=== PATIENT | female | born 1970 | race Caucasian/White ===

== ENCOUNTER 2016-11-01 09:19 | Inpatient (IN) | payer OTHER ==
--- NOTE | ~2016-11-01 | DS ---
Unit #: [id number] #: [id number] Patient: MARIE TAMEZ [id number] [place] [address] [id number] I MR#: [id number] NAME: MARIE TAMEZ. ROOM: 73 Age: 46 Sex: F Admission Date: 11/01/2016 : 1970 Discharge Date: 11/04/2016 Attending Physician: Paco Barraza M.D. Primary Care Physician: Generic Doctor Not In System DISCHARGE SUMMARY REASON FOR ADMISSION Alcohol and opiate dependence, and substance use. DIAGNOSTIC STUDIES PERTINENT LABORATORY DATA: Included RPR which was nonreactive here and urine toxicology screen that was positive for benzos, cocaine, marijuana, and opiates. HOSPITAL COURSE The patient was admitted for safety and stabilization for alcohol detox and was monitored for any opiate signs as well. The patient was maintained on her home medications for her hepatitis C, hypothyroidism, and COPD related complications. The patient was also given hydrocortisone cream by medicine consult for rash. Beyond that the other meds the patient received were detox p.r.n.s. Over the course of the hospitalization, the patient showed an improvement in both her detox symptoms and mood. She was up, active, and interactive with groups and staff. At the time of discharge, she was denying any detox symptoms. She was goal-focused to go to [facility] in her home family's town of [place] and was going to meet them at the bus depot in [place] when she shows up there. Overall, the patient at the time of discharge was denying any SI or HI. She was denying any acute detox symptoms and was overall appeared to be stable. It was felt that she was appropriate for discharge, and disposition home. DISCHARGE DIAGNOSES 1. Alcohol dependency with withdrawal. 2. Opiate abuse. 3. Hepatitis C. 4. Hypothyroidism. 5. Chronic obstructive pulmonary disease. DISCHARGE INSTRUCTIONS Her followup care will be through [facility] in [place] in the next 48 if possible. DISCHARGE MEDICATIONS 1. Advair HFA 115/21 mcg daily for COPD. 2. Levaquin 750 mg daily x1 more dose for UTI. 3. Levothyroxine Sodium 25 mcg daily for hypothyroidism. 4. Hydroxyzine 50 mg every 8 hours as needed for breakthrough anxiety. 5. Phenergan 25 mg as needed 3 times a day for nauseousness. 6. Lllf-ehi-jwgrtvh ibuprofen as needed for breakthrough pain. 7. Ventolin HFA 1 to 2 puffs every 4 to 6 hours as needed for Unit #: [id number] #: [id number] Patient: MARIE TAMEZ COPD-related symptoms. PROGNOSIS Moderate given the patient's history of noncompliance. DISCHARGE DIET Regular. DISCHARGE ACTIVITY As tolerated. Dictated by... Leydi Cuenca/christine TD: 11/04/2016 14:36 JOB #: [id number] DISCHARGE SUMMARY Page 1 of 1 X Paco Barraza MD X DISCHARGE SUMMARY
--- NOTE | ~2016-11-01 | CO ---
Unit #: [id number] #: [id number] Patient: MARIE TAMEZ [id number] [place] [address] [id number] I MR#: [id number] NAME: MARIE TAMEZ. ROOM: [facility] Age: 46 Sex: F Admission Date: 11/01/2016 : 1970 Attending Physician: Paco Barraza M.D. Primary Care Physician: Generic Doctor Not In System Consultation Date: 11/02/2016 CONSULTATION REPORT Marie is a 46-year-old who was admitted with a scattered vesicular rash. This was examined and described under her admission H and P. Please see H and P dated 11/01/2016. Dictated by... Viviane Yanez P.A.-C. for Leydi Murray/amy TD: 11/02/2016 16:25 JOB #: [id number] CONSULTATION REPORT Page 1 of 1 X Viviane Yanez CONSULTATION REPORT
--- NOTE | ~2016-11-01 | PN ---
Unit #: [id number] #: [id number] Patient: MARIE TAMEZ [id number] [facility] [address] [place] [address] [id number] I MR#: [id number] NAME: MARIE TAMEZ. ROOM: P173 Age: 46 Sex: F Admission Date: 11/01/2016 : 1970 Attending Physician: Paco Barraza M.D. Admitting Physician: Paco Barraza M.D. Primary Care Physician: Generic Doctor Not In System [facility] PROGRESS NOTES DATE 11/03/2016 SUBJECTIVE UPDATE This is a 46-year-old white female who is here with ongoing issues of alcohol dependency and withdrawal. Patient reports somewhat anxious today and depressed but compared to how they were yesterday, mild tremor, mild diaphoresis, some sleep disturbance but no overt issues with GI disturbance today. Headache seems to be improved. Patient seems more focused and animated. Discussing possibility of residential treatment today. I have spoken with social media manager about possible referral resources for her. MENTAL STATUS EXAMINATION General appearance is a limitedly groomed white female appears older than stated age, somewhat disheveled. Speech was clear and coherent. Mood was "better", less anxious, depressed with a constricted affect. Thought process and content were fairly organized and linear. No overt evidence of psychosis. The patient denied any active SI or HI. Patient's memory was grossly intact. Associations were normal. Cognitive functioning was at baseline. Alert and oriented times four. Insight and judgement is improving. RECOMMENDATIONS Will continue patient's admission for safety and stabilization for ongoing issues with alcohol detox as well as aftercare. Disposition plan still being evaluated. Will continue to monitor for issues and symptoms as noted above and for any progress and/or relapsing. Dictated by... Leydi Cuenca/isabel TD: 11/03/2016 23:16 JOB #: [id number] Unit #: [id number] #: [id number] Patient: MARIE TAMEZ [facility] PROGRESS NOTES Page 1 of 1 X Paco Barraza MD X PROGRESS NOTE
--- NOTE | ~2016-11-01 | PA ---
Unit #: [id number] #: [id number] Patient: MARIE TAMEZ [id number] [place] [address] [id number] I MR#: [id number] NAME: MARIE TAMEZ. ROOM: P173 Age: 46 Sex: F Admission Date: 11/01/2016 : 1970 Date of Assessment: Attending Physician: Paco Barraza M.D. Admitting Physician: Paco Barraza M.D. PSYCHIATRIC ASSESSMENT [facility], room #173, bed #1. INFORMANTS Patient and chart, both reliable. CHIEF COMPLAINT "I've got to get my drinking under control." HISTORY OF PRESENT ILLNESS This is a 46-year-old white female with a longstanding history of severe alcoholism and other substance abuse including opioids. The patient has been drinking 6 to 8 beers a day plus up to a fifth of liquor for at least on a daily basis for the last 4 years. The patient overall is reporting that she has had subjective withdrawal symptoms at home, but no overt medical treatment for them before. She is concerned that with her continued drinking that it will be out of control and she will not be able to control them, that is why she is here now. She does have a history of mood issues, but it is unclear if there are 8 versus substance related, at least one suicide attempt by overdose several years ago. The patient reports some minor issues with tremors at this time and anxiety, minor headache and upset stomach, but otherwise had no other complaints. Last drink of alcohol was around 36 hours ago. The patient lives in [place] and was sent by the transport from there for treatment here. Several outpatient programs, but no inpatient detox previously. PAST PSYCHIATRIC HISTORY As noted above, at least one previous psych admission several years ago, but no outpatient regular care or treatment. No regular therapy or other interventions, no history of overt medication compliance treatment, no history of HI, any psychosis or regular SI. FAMILY HISTORY Substance abuse issues, noncontributory. SOCIAL HISTORY The patient is single. Has an adult child who the patient's own mother raised. She is homeless, unemployed, support network is varied. MEDICAL ISSUES Significant for hepatitis C, hypothyroidism, and COPD. ALLERGIES Unit #: [id number] #: [id number] Patient: MARIE TAMEZ Include sulfa drugs. MEDICATION HISTORY Includes her home medications of Synthroid 25 mcg daily, ibuprofen 800 mg every 8 hours for pain, Proventil HFA 2 puffs every 4 hours as needed, Vistaril 50 mg every 8 hours as needed, hydrocortisone cream to be applied topically b.i.d., Levaquin 250 mg daily currently for UTI, Symbicort 2 puff inhalations daily. MENTAL STATUS EXAM General appearance; this is a limitedly groomed white female, who appears much older than stated age, disheveled with good eye contact. Speech was clear and coherent. Mood was dysphoric and anxious with a congruent affect. Thought process and content are grossly organized and linear. No overt evidence of psychosis. No SI, no HI reported at this time. The patient's memory was grossly intact. Associations were normal. Cognitive function was at baseline. Alert and oriented x4. Insight and judgment are limited. ASSETS AND LIABILITIES Assets include some support through family, previous treatment with forms of CD treatment. Liabilities include homelessness, unemployment, lack of medical detox experience. ADMITTING DIAGNOSES 1. Alcohol dependency with withdrawal. 2. Opioid abuse. 3. Hepatitis C. 4. Hypothyroidism. 5. Chronic obstructive pulmonary disease. PSYCHIATRIC PLAN Continue the patient's admission for safety and stabilization for ongoing issues with alcohol dependency and related detox risk with withdrawal. The patient has been placed on a CIWA protocol and monitored accordingly with her home medications being maintained as well. We will monitor for changes there in. Treatment plan will be resolution of symptoms in a safe controlled environment with discharge planning most likely to include community resources at home area or if at all possible, residential treatment program as the patient brought up the possibility of [facility] in [place] as it is near her family. That will be the options explored through [facility] Department here in the hospital. ESTIMATED LENGTH OF STAY Approximately 5 days depending on the patient's progress and response to treatment. Dictated by.Dedra. Paco Barraza M.D. HERACLIO/amy TD: 11/02/2016 23:56 JOB #: [id number] Unit #: [id number] #: [id number] Patient: MARIE TAMEZ PSYCHIATRIC ASSESSMENT Page 1 of 1 X Paco Barraza MD PSYCHIATRIC ASSESSMENT
--- NOTE | ~2016-11-01 | HP ---
Unit #: [id number] #: [id number] Patient: MARIE TAMEZ [id number] [place] [address] [id number] I MR#: [id number] NAME: MARIE TAMEZ. ROOM: 73 Age: 46 Sex: F Admission Date: 11/01/2016 : 1970 Attending Physician: Paco Barraza M.D. Admitting Physician: Paco Barraza M.D. Primary Care Physician: Generic Doctor Not In System HISTORY AND PHYSICAL HISTORY OF PRESENT ILLNESS Sylvia is a 46 year old admitted to [facility] because of her abuse of alcohol. PAST MEDICAL HISTORY 1. Long history of alcohol abuse. 2. Hypothyroidism. 3. Hepatitis C. 4. COPD. PAST SURGICAL HISTORY 1. Splenectomy. 2. Tubal ligation. ALLERGIES Sulfa. SOCIAL HISTORY Smokes 1 pack per day. Drinks 12 beers plus a fifth of liquor on a daily basis. Admits to using cocaine frequently. FAMILY HISTORY Medically noncontributory. REVIEW OF SYSTEMS CONSTITUTIONAL: No fever or chills. HEENT: Denies any sore throat, ear pain or runny nose. CARDIOVASCULAR: Denies chest pain, irregular heart rhythm or palpitations. CHEST: Denies shortness of breath or cough. No hemoptysis. GASTROINTESTINAL: Denies nausea, vomiting, diarrhea or chronic constipation. ENDOCRINE: Denies history of increased thirst or urination. No recent significant weight loss or gain. GENITOURINARY: Denies dysuria, frequency, or hematuria. SKIN: Denies any rashes. HEMATOLOGIC: Denies history of increased bleeding or bruising. MUSCULOSKELETAL: Denies any hot, swollen joints. No generalized muscle pain. NEUROLOGIC: Denies problems with vision or speech. No frequent, severe headaches. No numbness, tingling or weakness in any extremities. Denies loss of bladder or bowel control. CURRENT MEDICATIONS 1. Detox protocol. Unit #: [id number] #: [id number] Patient: MARIE TAMEZ 2. Synthroid 0.025 mg daily. 3. Ibuprofen 800 mg q. 8 hours. 4. Symbicort b.i.d. PHYSICAL EXAMINATION GENERAL: Alert, well-nourished, in no apparent distress. VITAL SIGNS: Blood pressure 160/100, heart rate 80, respirations 16, temperature 98.6. WEIGHT: 147. HEIGHT: 5 feet 7 inches. SKIN: Warm and dry. She does have scattered vesicular rash along her lower abdomen. HEENT: Normocephalic. TMs not viewed. Oral and nasal passages clear. Conjunctivae clear. PERRLA. EOMs intact. NECK: Supple without lymphadenopathy or thyromegaly. HEART: Regular rate and rhythm without murmur. LUNGS: Clear. ABDOMEN: Soft, nontender. : Not done. EXTREMITIES: No evidence of cyanosis, clubbing or edema. Moves all without focal deficit. NEUROLOGICAL: Grossly within normal limits. Cranial Nerves: II: Visual almanza are intact. III, IV AND : Extraocular movements are intact. Pupils are equal, round and reactive to light. V: Facial sensation is grossly normal. VII: Facial movements and expression are normal. VIII: Auditory acuity grossly intact. IX, X: Uvula is midline. Phonation is normal. XI: Patient shrugs shoulders and turns head normally. XII: Tongue protrudes in the midline. Sensory and Motor Function: Sensory and motor sensation is grossly normal. Motor: moves all extremities well. Coordination: Gait is normal. Deep Tendon Reflexes: Intact. IMPRESSION 1. Psychiatric admission. 2. Contact dermatitis. RECOMMENDATIONS PSYCHIATRIC: Per psychiatrist. MEDICAL: 1. See no contraindications to participate in facility's activities. 2. Hydrocortisone cream 1% b.i.d. MEDICAL PROGNOSIS Good. MEDICAL CONDITION Stable. Dictated by... Viviane Yanez P.A.-C. for Leydi Murray/formerly [facility] Unit #: [id number] #: [id number] Patient: MARIE TAMEZ TD: 11/01/2016 23:08 JOB #: [id number] HISTORY AND PHYSICAL Page 1 of 1 X Viviane Yanez HISTORY AND PHYSICAL
[2016-11-03 11:09] LABS: AMPHETAMINE NEG (NEG); BARBITURATES NEG (NEG); BENZODIAZEPINES POS (NEG); COCAINE POS (NEG); MARIJUANA POS (NEG); OPIATES POS (NEG); TRICYCLIC ANTIDEPRESSANTS NEG (NEG); U METHADONE NEG (NEG)
== END 2016-11-04 17:20 | disposition home or self-care (01) | DRG 897 ==
LOC: P1E 13:18
PROVIDERS: Psychiatry & Neurology Psychiatry
PROC: HZ2ZZZZ Detoxification Services for Substance Abuse Treatment (ICD-10-PCS; principal; 2016-11-01)
DX: F10.239 Alcohol dependence with withdrawal, unspecified (principal); F11.10 Opioid abuse, uncomplicated; B19.20 Unspecified viral hepatitis C without hepatic coma; E03.9 Hypothyroidism, unspecified; J44.9 Chronic obstructive pulmonary disease, unspecified; Z88.2 Allergy status to sulfonamides; L25.9 Unspecified contact dermatitis, unspecified cause; Z59.0 Homelessness; Z56.0 Unemployment, unspecified; F17.210 Nicotine dependence, cigarettes, uncomplicated
CPT/HCPCS: 80307; 86592